=== PATIENT | male | born 2005 | race Two or more races ===

== ENCOUNTER 2025-07-26 10:04 | Emergency (ER) | payer OTHER ==
[~2025-07-26] VITALS: Ht 167.6 cm; Wt 69.9 kg
[2025-07-26] MEDS ORDERED: KETOROLAC TROMETHAMINE 30 MG VIAL IV ONE (11:15)
[2025-07-26] MEDS ORDERED: CEFTRIAXONE SODIUM 2,000 MG VIAL IV ONE (11:15)
== END 2025-07-26 13:51 | disposition home or self-care (01) ==
LOC: EMR PED 10:04 → ER 10:04 → EMR PED 11:37
DX: S39.848A Other specified injuries of external genitals, initial encounter (principal); X58.XXXA Exposure to other specified factors, initial encounter; Y93.89 Activity, other specified; Y92.89 Other specified places as the place of occurrence of the external cause; Y99.9 Unspecified external cause status